=== PATIENT | male | born 1960 | race Caucasian/White ===

== ENCOUNTER 2016-10-16 08:47 | Emergency (ER) | payer SELFPAY ==
[~2016-10-16] VITALS: Ht 170.2 cm; Wt 98.1 kg
[~2016-10-16 08:47] MED LIST: ASPIRIN81 M1 PO; ATARAX,VISTARIL50 MG PO; AUGMENTIN875 MG PO; CEFDINIR300 MG PO; FIORICET 50-301 EACH PO; FLOMAX0.4 MG PO; FLUOXETINE HCL20 M1 PO; FLUOXETINE HCL20 MG PO; FLUOXETINE HCL40 MG PO; HYDROCHLOROTHIA25 MG PO; LISINOPRIL40 MG PO; LORADAMED10 MG PO; MELOXICAM15 MG PO; NAPROSYN500 MG PO; NASONEX17 GM BOTH NARES; OMEPRAZOLE20 M2 PO; OMEPRAZOLE20 MG PO; OMEPRAZOLE40 M1 PO; OXCARBAZEPINE300 MG PO; PEPCID20 MG PO; PRAZOSIN HCL1 MG PO; PREDNISONE20 MG PO; RISPERIDONE3 MG PO; TAMSULOSIN HCL0.4 MG PO; VENTOLIN HFA18 GM IH; VIRTUSSIN AC L473 ML PO; ZESTRIL,PRINIVI20 MG PO; ZOFRAN ODT4 MG PO
[2016-10-16 10:09] LABS: EOSINOPHIL (%) 1.1 % (0-5); EOSINOPHIL COUNT 0.1 K/uL (0-0.3); HEMATOCRIT 40.4 % (38.0-50.0); IMMATURE GRANULOCYTE (%) 0.4 % (0.0-0.7); MCH 27.4 PG (29.0-34.0); MCHC 32.7 G/DL (30.0-36.0); MEAN PLAT.VOLUME 11.3 uM^3 (9.0-12.4); MONOCYTE (%) 8.5 % (3-12); MONOCYTE COUNT 0.5 K/uL (0-0.8); NEUTROPHIL (%) 72.1 % (45-76); PLATELET COUNT 191 K/uL (156-360); RBC DIS.WIDTH-CV 14.5 % (11.8-14.6); RBC DIS.WIDTH-SD 44.4 % (39-53); RED BLOOD COUNT 4.81 M/uL (4.00-5.50); WHITE BLOOD COUNT 5.5 K/uL (4.1-10.2)
[2016-10-16 10:21] LABS: CHLORIDE 107 mEq/L (99-109); POTASSIUM 3.2 mEq/L (3.7-5.4); SODIUM 140 mEq/L (136-147)
[2016-10-16 10:23] LABS: GLUCOSE 227 mg/dL (70-99)
[2016-10-16 10:24] LABS: ANION GAP 12 MEQ/L (2-14)
[2016-10-16 10:25] LABS: TOTAL BILIRUBIN 0.7 mg/dL (0.0-1.0)
[2016-10-16 10:26] LABS: SERUM ETHYL ALCOHOL < 10 mg/dL
[2016-10-16 10:27] LABS: ALKALINE PHOSPHATASE 80 IU/L (3-129); GFR ESTIMATE (CALCULATED) > 59 mL/min/
[2016-10-16 10:28] LABS: INTER. NORMALIZED RATIO 1.1; PROTHROMBIN TIME 11.9 SEC (10.2-12.9)
[2016-10-16 10:29] LABS: UREA NITROGEN (BUN) 13 mg/dL (9-23)
[2016-10-16 10:30] LABS: SALICYLATE < 5.0 MG/DL (15-30); TROP-I INTERPRETATION NEGATIVE; TROPONIN-I 0.02 ng/mL (0.0-0.30)
[2016-10-16 10:31] LABS: PTT 28.3 SEC (25-37)
[2016-10-16 11:21] LABS: ADD MIUA? NO; BILIRUBIN NEGATIVE; BLOOD NEGATIVE; COLOR STRAW ((YELLOW)); GLUCOSE (STRIP) 150; KETONES 20; LEUKOCYTES NEGATIVE; NITRITE NEGATIVE; PROTEIN (STRIP) NEGATIVE; SPECIFIC GRAVITY 1.005 (1.000-1.030); UROBILINOGEN 0.2 MG/DL (0.2-1.0)
[2016-10-16 11:29] LABS: ADD MEDTOX COMMENT Y; AMPHETAMINE NEGATIVE (500 ng/mL); BARBITURATES NEGATIVE (200 ng/mL); BENZODIAZEPINES NEGATIVE (150 ng/mL); COCAINE NEGATIVE (150 ng/mL); INTERNAL CONTROLS VALID? YES; METHADONE NEGATIVE (200 ng/mL); METHAMPHETAMINE NEGATIVE (500 ng/mL); OPIATES (MORPHINE) NEGATIVE (100 ng/mL); OXYCODONE NEGATIVE (100 ng/mL); PHENCYCLIDINE NEGATIVE (25 ng/mL); PROPOXYPHENE NEGATIVE (300 ng/mL); THC CANNABINOIDS PRESUMPTIVE POSITIVE (50 ng/mL); TRICYCLIC ANTIDEPRESSANTS PRESUMPTIVE POSITIVE (300 ng/mL)
[2016-10-16 16:22] VITALS: BP 172/96
== END 2016-10-16 16:24 | disposition left against medical advice (07) ==
LOC: EME 08:47
PROVIDERS: Emergency Medicine
DX: F41.9 Anxiety disorder, unspecified (principal); F32.9 Major depressive disorder, single episode, unspecified; T43.592A Poisoning by other antipsychotics and neuroleptics, intentional self-harm, initial encounter; R00.0 Tachycardia, unspecified; F43.21 Adjustment disorder with depressed mood; I48.92 Unspecified atrial flutter; J44.9 Chronic obstructive pulmonary disease, unspecified; I10 Essential (primary) hypertension; Z87.891 Personal history of nicotine dependence
CPT/HCPCS: 71010; 80053; 81003; 84484; 84999; 85025; 85610; 85730; 90839; 93005; 99281; 99285; G0480; J7030